=== PATIENT | male | born 1955 | race Caucasian/White ===

== ENCOUNTER → 2020-12-05 11:23 | Outpatient (BNVA) | payer BC, MEDICARE, SELFPAY | PROVIDERS: PCP Internal Medicine; Visit Provider Urology ==

== ENCOUNTER → 2021-06-22 10:18 | Outpatient (BNVA) | payer BC, MEDICARE, SELFPAY | PROVIDERS: PCP Internal Medicine; Visit Provider Urology ==

== ENCOUNTER → 2022-04-09 14:42 | Outpatient (BNVA) | payer OTHER, SELFPAY | PROVIDERS: PCP Internal Medicine; Visit Provider Urology | DX: N40.0 Benign prostatic hyperplasia without lower urinary tract symptoms (principal); R97.20 Elevated prostate specific antigen [PSA]; R39.15 Urgency of urination | CPT/HCPCS: 51798 ==

== ENCOUNTER 2023-04-11 13:25 | Outpatient (AMB) | payer MEDICARE, SELFPAY ==
--- NOTE | 2023-04-11 13:27 | A.OFFVIS_ITS ---
Intake Intake Visit Reasons: 1Y PSA(set) Intake Note: Patient is present for Follow Up PSA Urology Med: Finasteride, Tamsulosin Antibiotic Allergy: None Blood Thinner: None Pharmacy: [facility] PVR: 0 Allergies No Known Allergies Allergy (Verified 04/11/23 13:28) Medication List - Last Reconciled 04/11/23 by Faustino Chavez MD atorvastatin 40 mg PO DAILY finasteride 5 mg PO DAILY 90 days tamsulosin 0.4 mg PO BEDTIME 90 days HPI HPI Comments History of Present Illness Details Popeye Beltran is a very pleasant male. He is a patient of Dr. Rosado. He is seen for the following urologic conditions. - lower urinary tract symptoms Good bladder emptying PVR low PSA low Continue combination therapy Lower urinary tract symptoms Benign prostatic hyperplasia (BPH) was diagnosed years ago. Current symptoms include 11/25 urinary frequency, urinary hesitancy 12/27 , nocturia, weak flow. Severity of the symptoms that is moderate, is 3 out of 10. Aggravating factors include fluid intake, caffeine intake. Recent labs included a PSA (prostate-specific antigen) 2011 2.3, February 2013 2.8, October 2013 2.9, May 2014 3.2, 11/25 3.3, 11/26 5.4 F 13%, 11/27 3.3, 11/28 4.7, 03/30 2.6 - 11/29 2.7, 07/01 1.4, 04/01 1.7, 04/02 1.9 [facility] Medical History BPH (benign prostatic hyperplasia) BPH with elevated PSA Hyperlipidemia Weak urinary stream Surgical History History of surgery Social History Alcohol intake: current Alcohol intake frequency: holidays/special occasions only Patient Tobacco Use Status: Former Tobacco user Tobacco use type: Cigarette Cigarettes Per Day: 20 Years Smoked: 5 Review of Systems Const Denies chills and Denies fever(s) Card Reports no additional complaints and Denies syncope Resp Denies cough GI Denies abdominal pain and Denies heartburn Reports as per HPI and Denies change in libido Neuro Denies syncope Psych Denies change in libido Endo Denies change in libido Physical Exam Const General: cooperative, healthy appearing, comfortable and no acute distress Orientation/consciousness: patient oriented x3 HEENT Face and sinus: Yes normal facial exam Mouth: moist mucous membranes Neck Neck: Yes normal visual inspection, Yes full ROM and Yes trachea midline Chest Chest palpation & inspection: normal inspection of the chest Resp Effort & Inspection: normal respiratory effort, able to speak in complete sentences and no respiratory distress GI Inspection: Yes normal to inspection Back/Spine/Pelvis Cervical Spine: normal cervical lordosis Thoracic/Lumbar Spine: thoracic and lumbar spine normal to inspection Skin General skin exam: no rashes or lesions noted Neuro General: patient oriented x3, gait normal, tone normal and moves all extremities Extrem General: Yes normal to inspection and Yes capillary refill normal Office Procedures Post Void Residual Post Residual Void Post Void Residual (PVR): 0 25703-[id number] Void Residual by ultrasound Results AMB Urinalysis, Automated UA Leukoctes 0 Gagandeep/uL Last Edit by Nora Quiñones [facility] on 04/11/23 13:37 UA Nitrite Negative Last Edit by Nora Quiñones [facility] on 04/11/23 13:37 UA Urobilinogen 0.2 mg/dL Last Edit by Nora Quiñones [facility] on 04/11/23 13:3 7 UA Protein 0 mg/dL Last Edit by Nora Quiñones [facility] on 04/11/23 13:37 UA pH 5.0 Last Edit by Nora Quiñones [facility] on 04/11/23 13:37 UA Blood 10 Jacek/uL Last Edit by Nora Quiñones [facility] on 04/11/23 13:37 UA Specific [place] 1.020 Last Edit by Nora Quiñones [facility] on 04/11/23 13: 37 UA Ketone Negative Last Edit by Nora Quiñones [facility] on 04/11/23 13:37 UA Bilirubin 0 mg/dL Last Edit by Nora Quiñones [facility] on 04/11/23 13:37 UA Glucose 0 mg/dL Last Edit by Nora Quiñones [facility] on 04/11/23 13:37 Assessment & Plan Assessment & Plan (1) BPH with elevated PSA: Code(s): N40.0 - Benign prostatic hyperplasia without lower urinary tract symptoms; R97.20 - Elevated prostate specific antigen [PSA] Plan Twelve month follow Orders: Orders Prostate Specific Antigen 364 Days N40.0 - Benign prostatic hyperplasia without lower urinary tract symptoms, R97.20 - Elevated prostate specific antigen [PSA] AMB Urinalysis Automated Today Z13.9 - Encounter for screening, unspecified AMB Post Void Residual by ultrasound Today N40.0 - Benign prostatic hyperplasia without lower urinary tract symptoms Patient Instructions: Imaging studies, laboratory and physical exam results were discussed and reviewed in detail. No major barriers to patient understanding were identified. An opportunity to ask questions regarding the treatment plan was provided. All questions were answered. The patient expressed understanding and agreement with the above treatment plan. The patient is aware they should contact our office by phone for worsening of their current condition or the appearance of new urologic symptoms. Compliance is encouraged with any medications and followup testing that is ordered. It is a privilege to participate in the urologic care of your patient. If you have any questions or concerns regarding treatment for the above conditions, or other urologic issues, please do not hesitate to contact me. The office telephone contact is [phone]. This note is constructed using voice recognition software. While every effort has been made to ensure accuracy formula technician errors may have been included. Yours sincerely, Dr Faustino Chavez MD, [facility] - Urology Providers of Expert, Compassionate Care for the Genitourinary System Coding Level of Care Code Est Pt Level 4 (34993) Diagnoses BPH with elevated PSA N40.0; R97.20 CPT Codes Post Residual Void - PVR CPT Code: 17041-Akmn Void Residual by ultrasound ([id number])
== END 2023-04-11 13:48 | disposition home or self-care (01) ==
PROVIDERS: PCP Internal Medicine; Visit Provider Urology
DX: N40.0 Benign prostatic hyperplasia without lower urinary tract symptoms (principal); R97.20 Elevated prostate specific antigen [PSA]; Z13.9 Encounter for screening, unspecified
CPT/HCPCS: 99214

== ENCOUNTER → 2023-04-11 13:25 | Outpatient (BNVA) | payer MEDICARE, SELFPAY | PROVIDERS: Visit Provider Urology | DX: N40.0 Benign prostatic hyperplasia without lower urinary tract symptoms (principal); R97.20 Elevated prostate specific antigen [PSA] | CPT/HCPCS: 51798; 81003; 99212 ==

== ENCOUNTER 2024-04-15 09:20 | Outpatient (AMB) | payer MEDICARE, SELFPAY ==
--- NOTE | 2024-04-15 09:30 | MHC.OFFVIS ---
Intake Visit Reasons: 1Y Follow Up-PSA(psa?)[facility] Intake Note: Patient is Present for Follow Up PVR Urology Medication: Finasteride, Tamsulosin Antibiotic Allergies:None Blood Thinners:None Last PVR:0MLS Today PVR: 36mls Patient went to [facility] for his PSA lab. [facility] did not run his PSA order, Results that was received was from PCP not our order that was sent over to lab. Patient states he has no issues with urination no pain or discomfort. PSA order was handed to patient. Valve Tester Required: No Accompanied by: Self / Same As Patient Allergies No Known Allergies Allergy (Verified 04/15/24 09:35) HPI Comments Details: Popeye Beltran is a very pleasant male. He is a patient of Dr. Rosado. He is seen for the following urologic conditions. - lower urinary tract symptoms Yearly follow-up PVR 0 PSA pending Combination therapy finasteride and tamsulosin Cut finasteride back to Friday, Friday, Friday Talked about helping his [id number]-ob-zqq rebuild a barn in [place] Lower urinary tract symptoms Benign prostatic hyperplasia (BPH) was diagnosed years ago. Current symptoms include 11/25 urinary frequency, urinary hesitancy 12/27 , nocturia, weak flow. Severity of the symptoms that is moderate, is 3 out of 10. Aggravating factors include fluid intake, caffeine intake. Recent labs included a PSA (prostate-specific antigen) 2011 2.3, February 2013 2.8, October 2013 2.9, May 2014 3.2, 11/25 3.3, 11/26 5.4 F 13%, 11/27 3.3, 11/28 4.7, 03/30 2.6 - 11/29 2.7, 07/01 1.4, 04/01 1.7, 04/02 1.9 [facility] Medical History Hyperlipidemia Weak urinary stream BPH (benign prostatic hyperplasia) BPH with elevated PSA Surgical History History of surgery Social History Alcohol intake: current Alcohol intake frequency: holidays/special occasions only Patient Tobacco Use Status: Former Tobacco user Tobacco use type: Cigarette Cigarettes Per Day: 20 Years Smoked: 5 Review of Systems Const Denies chills and Denies fever(s) Card Reports no additional complaints and Denies syncope Resp Denies cough GI Denies abdominal pain and Denies heartburn Reports as per HPI and Denies change in libido Neuro Denies syncope Psych Denies change in libido Endo Denies change in libido Physical Exam Const General: cooperative, healthy appearing, comfortable and no acute distress Orientation/consciousness: patient oriented x3 HEENT Face and sinus: Yes normal facial exam Mouth: moist mucous membranes Neck Neck: Yes normal visual inspection, Yes full ROM and Yes trachea midline Chest Chest palpation & inspection: normal inspection of the chest Resp Effort & Inspection: normal respiratory effort, able to speak in complete sentences and no respiratory distress GI Inspection: Yes normal to inspection Back/Spine/Pelvis Cervical Spine: normal cervical lordosis Thoracic/Lumbar Spine: thoracic and lumbar spine normal to inspection Skin General skin exam: no rashes or lesions noted Neuro General: patient oriented x3, gait normal, tone normal and moves all extremities Extrem General: Yes normal to inspection and Yes capillary refill normal Assessment & Plan Assessment & Plan (1) BPH (benign prostatic hyperplasia): Code(s): N40.0 - Benign prostatic hyperplasia without lower urinary tract symptoms Category: Medical (2) Urinary urgency: Code(s): R39.15 - Urgency of urination Category: Medical Plan Twelve month follow-up PSA Orders: Orders AMB Post Void Residual by ultrasound Today N40.0 - Benign prostatic hyperplasia without lower urinary tract symptoms Prostate Specific Antigen 364 Days N40.0 - Benign prostatic hyperplasia without lower urinary tract symptoms, R97.20 - Elevated prostate specific antigen [PSA] Patient Instructions: Imaging studies, laboratory and physical exam results were discussed and reviewed in detail. No major barriers to patient understanding were identified. An opportunity to ask questions regarding the treatment plan was provided. All questions were answered. The patient expressed understanding and agreement with the above treatment plan. The patient is aware they should contact our office by phone for worsening of their current condition or the appearance of new urologic symptoms. Compliance is encouraged with any medications and followup testing that is ordered. It is a privilege to participate in the urologic care of your patient. If you have any questions or concerns regarding treatment for the above conditions, or other urologic issues, please do not hesitate to contact me. The office telephone contact is [phone]. This note is constructed using voice recognition software. While every effort has been made to ensure accuracy zoning engineer errors may have been included. Yours sincerely, Dr Faustino Chavez MD, [facility] - Urology Providers of Expert, Compassionate Care for the Genitourinary System Coding Level of Care Code Est Pt Level 4 (49777) Diagnoses BPH (benign prostatic hyperplasia) N40.0 Urinary urgency R39.15
== END 2024-04-15 10:19 | disposition home or self-care (01) ==
PROVIDERS: PCP Internal Medicine; Visit Provider Urology
DX: N40.0 Benign prostatic hyperplasia without lower urinary tract symptoms (principal); R39.15 Urgency of urination
CPT/HCPCS: 99214

== ENCOUNTER → 2024-04-15 09:20 | Outpatient (BNVA) | payer MEDICARE, SELFPAY | PROVIDERS: PCP Internal Medicine; Visit Provider Urology | DX: N40.0 Benign prostatic hyperplasia without lower urinary tract symptoms (principal); R39.15 Urgency of urination | CPT/HCPCS: 99212 ==

== ENCOUNTER 2025-04-15 08:17 | Outpatient (AMB) | payer MEDICARE, SELFPAY ==
--- NOTE | 2025-04-15 08:17 | A.OFFVIS_ITS ---
Intake Visit Reasons: 1y/PSA Intake Note: Patient is Present for: 1yr follow up Urology Medication: Finasteride, Tamsulosin Blood Thinners:None labs done 12/22/24: PSA 1.4 Today PVR: 0mls Electrical Prospecting Observer Required: No Accompanied by: Self / Same As Patient Allergies No Known Allergies Allergy (Verified 04/15/25 08:19) HPI Comments Details: Popeye Beltran is a very pleasant male. He is a patient of Dr. Rosado. He is seen for the following urologic conditions. 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 Current symptoms include 11/25 urinary frequency, urinary hesitancy 12/27 , nocturia, weak flow. Severity of the symptoms that is moderate, is 3 out of 10. Aggravating factors include fluid intake, caffeine intake. Recent labs included a PSA (prostate-specific antigen) 2011 2.3, February 2013 2.8, October 2013 2.9, May 2014 3.2, 11/25 3.3, 11/26 5.4 F 13%, 11/27 3.3, 11/28 4.7, 03/30 2.6 - 11/29 2.7, 07/01 1.4, 04/01 1.7, 04/02 1.9, 01/02 1.3 PFSH Medical History Hyperlipidemia Weak urinary stream BPH (benign prostatic hyperplasia) BPH with elevated PSA Surgical History History of surgery Social History Alcohol intake: current Alcohol intake frequency: holidays/special occasions only Patient Tobacco Use Status: Former Tobacco user Tobacco use type: Cigarette Cigarettes Per Day: 20 Years Smoked: 5 Review of Systems Const Denies chills and Denies fever(s) Card Reports no additional complaints and Denies syncope Resp Denies cough GI Denies abdominal pain and Denies heartburn Reports as per HPI and Denies change in libido Neuro Denies syncope Psych Denies change in libido Endo Denies change in libido Physical Exam Const General: cooperative, healthy appearing, comfortable and no acute distress Orientation/consciousness: patient oriented x3 HEENT Face and sinus: Yes normal facial exam Mouth: moist mucous membranes Neck Neck: Yes normal visual inspection, Yes full ROM and Yes trachea midline Chest Chest palpation & inspection: normal inspection of the chest Resp Effort & Inspection: normal respiratory effort, able to speak in complete sentences and no respiratory distress GI Inspection: Yes normal to inspection Back/Spine/Pelvis Cervical Spine: normal cervical lordosis Thoracic/Lumbar Spine: thoracic and lumbar spine normal to inspection Skin General skin exam: no rashes or lesions noted Neuro General: patient oriented x3, gait normal, tone normal and moves all extremities Extrem General: Yes normal to inspection and Yes capillary refill normal Office Procedures Post Void Residual Post Residual Void Post Void Residual (PVR): 0 [id number] Void Residual by ultrasound Results AMB Urinalysis, Automated UA Leukoctes 0 Gagandeep/uL Last Edit by RYNE Bernardo on 04/15/25 08:29 UA Nitrite Negative Last Edit by RYNE Bernardo on 04/15/25 08:29 UA Urobilinogen 0.2 mg/dL Last Edit by RYNE Bernardo on 04/15/25 08:2 9 UA Protein 0 mg/dL Last Edit by RYNE Bernardo on 04/15/25 08:29 UA pH 6.0 Last Edit by RYNE Bernardo on 04/15/25 08:29 UA Blood 0 Jacek/uL Last Edit by RYNE Bernardo on 04/15/25 08:29 UA Specific [place] 1.015 Last Edit by RYNE Bernardo on 04/15/25 08: 29 UA Ketone Negative Last Edit by RYNE Bernardo on 04/15/25 08:29 UA Bilirubin 0 mg/dL Last Edit by RYNE Bernardo on 04/15/25 08:29 UA Glucose 0 mg/dL Last Edit by RYNE Bernardo on 04/15/25 08:29 Results Reviewed Results Reviewed: Laboratory Last Values Urine pH (Auto) 6.0 09/05/25 08:28 Specific [place] (Auto) 1.015 04/15/25 08:28 Urine Protein (Auto) 0 mg/dL 04/15/25 08:28 Glucose (UA)(Auto) 0 mg/dL 04/15/25 08:28 Urine Ketones (Auto) Negative 04/15/25 08:28 Urine Blood (Auto) 0 Jacek/uL 04/15/25 08:28 Urine Nitrite (Auto) Negative 04/15/25 08:28 Urine Bilirubin (Auto) 0 mg/dL 04/15/25 08:28 Urine Urobilinogen (Auto) 0.2 mg/dL 04/15/25 08:28 Leukocyte Esterase (Auto) 0 Gagandeep/uL 04/15/25 08:28 Assessment & Plan Assessment & Plan (1) BPH with elevated PSA: Code(s): N40.0 - Benign prostatic hyperplasia without lower urinary tract symptoms; R97.20 - Elevated prostate specific antigen [PSA] Category: Medical Plan Twelve month follow-up PVR office Orders: Orders AMB Post Void Residual by ultrasound Today N40.0 - Benign prostatic hyperplasia without lower urinary tract symptoms, R97.20 - Elevated prostate specific antigen [PSA] AMB Urinalysis Automated Today Z13.9 - Encounter for screening, unspecified Patient Instructions: This note is constructed using voice recognition software. While every effort has been made to ensure accuracy retail consultant errors may have been included. Imaging studies, laboratory and physical exam results were discussed and reviewed in detail. No major barriers to patient understanding were identified. An opportunity to ask questions regarding the treatment plan was provided. All questions were answered. The patient expressed understanding and agreement with the above treatment plan. The patient is aware they should contact our office by phone for worsening of their current condition or the appearance of new urologic symptoms. Compliance is encouraged with any medications and followup testing that is ordered. It is a privilege to participate in the urologic care of your patient. If you have any questions or concerns regarding treatment for the above conditions, or other urologic issues, please do not hesitate to contact me. The office telephone contact is [phone]. Sincerely, Dr Faustino Chavez MD, [facility] - Urology Compassionate Specialist Care for the Genitourinary System Coding Level of Care Code Est Pt Level 4 (50601) Diagnoses BPH with elevated PSA N40.0; R97.20 CPT Codes Post Residual Void - PVR CPT Code: 77836-Pnnp Void Residual by ultrasound ([id number])
== END 2025-04-15 09:16 | disposition home or self-care (01) ==
PROVIDERS: PCP Internal Medicine; Visit Provider Urology
DX: N40.0 Benign prostatic hyperplasia without lower urinary tract symptoms (principal); R97.20 Elevated prostate specific antigen [PSA]; Z13.9 Encounter for screening, unspecified
CPT/HCPCS: 99214

== ENCOUNTER → 2025-04-15 08:17 | Outpatient (BNVA) | payer MEDICARE, SELFPAY | PROVIDERS: PCP Internal Medicine; Visit Provider Urology | DX: N40.0 Benign prostatic hyperplasia without lower urinary tract symptoms (principal); R97.20 Elevated prostate specific antigen [PSA] | CPT/HCPCS: 51798; 81003; 99212 ==